=== PATIENT | female | born 1935 | race Caucasian/White ===

== ENCOUNTER 2018-08-06 11:44 | Inpatient (IN) | payer OTHER ==
[~2018-08-06] VITALS: Ht 154.9 cm; Wt 58.1 kg
[2018-08-06 11:44] VITALS: BP_SYST 146
[~2018-08-06 11:44] MED LIST: CITA10TA17 PO
[2018-08-06] MEDS ORDERED: NACL 0.9% 1,000 ML IV ONE (12:15)
[2018-08-06 12:26] LABS: BASOPHILS % (AUTO) 0.5 % (0.0-2.0); EOSINOPHILS # (AUTO) 0.2 K/uL (0.0-0.4); EOSINOPHILS % (AUTO) 1.9 % (0.0-4.0); HEMATOCRIT 37.9 % (36-48); HEMOGLOBIN 12.7 g/dL (12.0-16.0); LYMPHOCYTES # (AUTO) 1.3 K/uL (1.0-5.5); LYMPHOCYTES % (AUTO) 13.7 % (20.5-51.5); MEAN CORPUSCULAR HEMOGLOBIN 28 pg (27-31); MEAN CORPUSCULAR HGB CONC 33 % (32-36); MEAN CORPUSCULAR VOLUME 83 fL (79.0-98.0); MONOCYTES # (AUTO) 0.8 K/uL (0.0-1.0); NEUTROPHILS # (AUTO) 7.5 K/uL (1.8-7.7); NEUTROPHILS % (AUTO) 75.9 % (40.0-70.0); PLATELET COUNT (AUTO) 254 K/uL (130-430); RED BLOOD CELL COUNT(AUTO) 4.57 MIL/uL (4.2-6.2); RED CELL DISTRIBUTION WIDTH 12.7 % (9.0-15.0); WHITE BLOOD COUNT (AUTO) 9.8 K/uL (4.8-10.8)
[2018-08-06 12:38] LABS: ANION GAP 8 (5-15); CALCIUM 9.5 mg/dL (8.4-11.0); CHLORIDE 100 mmol/L (98-107); CREATININE 0.72 mg/dL (0.55-1.30); GLUCOSE 92 mg/dL (70-99); POTASSIUM 4.4 mmol/L (3.5-5.1); SODIUM SERUM 134 mmol/L (136-145); UREA NITROGEN, BLOOD 12 mg/dL (8-21)
[2018-08-06 12:41] LABS: BILIRUBIN,URINE NEGATIVE (NEGATIVE); BLOOD, URINE NEGATIVE (NEGATIVE); CLARITY/URINE CLEAR (CLEAR); COLOR,URINE YELLOW (YELLOW); GLUCOSE,URINE NEGATIVE (NEGATIVE); KETONES,URINE NEGATIVE (NEGATIVE); LEUKOCYTE ESTERASE ,URINE NEGATIVE (NEGATIVE); NITRITE, URINE NEGATIVE (NEGATIVE); PH,URINE 6.5 (5.0-8.0); PROTEIN URINE NEGATIVE (NEGATIVE); UROBILINOGEN,URINE 0.2 (0.2-1.0)
[2018-08-06 12:43] LABS: ALANINE AMINOTRANSFERASE 21 U/L (12-78); ALBUMIN 3.7 g/dL (3.4-4.8); ASPARTATE AMINOTRANSFERASE 23 U/L (10-37); TOTAL BILIRUBIN 0.3 mg/dL (0.0-1.0)
[2018-08-06 12:44] LABS: PROTHROMBIN TIME 9.8 SECS (9.5-12.5)
[2018-08-06] MEDS ORDERED: ASPIRIN 81 MG TAB.CHEW PO ONE (13:15)
[2018-08-06] MEDS ORDERED: ONDANSETRON HCL 4 MG/2 ML VIAL IVP PRN (14:15)
[2018-08-06] MEDS ORDERED: ACETAMINOPHEN 325 MG TABLET PO PRN (14:15)
[2018-08-06] MEDS ORDERED: MORPHINE 4 MG/ML INJ. SYRINGE IVP PRN (14:15)
[2018-08-06] MEDS ORDERED: CARB-61 PO (15:04)
[2018-08-06] MEDS ORDERED: POTA10TA15 PO (15:04)
[2018-08-06 15:33] VITALS: BP_SYST 153
[2018-08-06] MEDS: SIMVASTATIN 10 MG TABLET PO SCH (17:42)
[2018-08-06 19:50] VITALS: BP_SYST 131
[2018-08-06] MEDS: FAMOTIDINE 20 MG TABLET PO SCH (20:12)
[2018-08-06] MEDS: METOPROLOL TARTRATE 25 MG TABLET PO SCH (20:12)
[2018-08-06 20:17] VITALS: BP_SYST 131
[2018-08-06] MEDS: ZOLPIDEM TARTRATE 5 MG TABLET PO PRN (22:39)
[2018-08-07 00:05] VITALS: BP_SYST 129
[2018-08-07 07:52] LABS: ANION GAP 8 (5-15); CALCIUM 8.7 mg/dL (8.4-11.0); CHLORIDE 100 mmol/L (98-107); CREATININE 0.73 mg/dL (0.55-1.30); GLUCOSE 86 mg/dL (70-99); POTASSIUM 4.1 mmol/L (3.5-5.1); SODIUM SERUM 136 mmol/L (136-145); UREA NITROGEN, BLOOD 14 mg/dL (8-21)
[2018-08-07 07:53] LABS: ALANINE AMINOTRANSFERASE 34 U/L (12-78); ALBUMIN 3.4 g/dL (3.4-4.8); ASPARTATE AMINOTRANSFERASE 25 U/L (10-37); TOTAL BILIRUBIN 0.6 mg/dL (0.0-1.0)
[2018-08-07 08:17] VITALS: BP_SYST 148
[2018-08-07] MEDS: ASPIRIN 325 MG TABLET PO SCH (08:18)
[2018-08-07] MEDS: FAMOTIDINE 20 MG TABLET PO SCH ×2 (08:20→20:21)
[2018-08-07] MEDS: METOPROLOL TARTRATE 25 MG TABLET PO SCH ×2 (08:20→20:21)
[2018-08-07] MEDS: NITROGLYCERIN 0.2 MG/HR PATCH.TD24 TD SCH (08:21)
[2018-08-07] MEDS: ENOXAPARIN SODIUM 40 MG/0.4 ML SYRINGE SUBCUT SCH (08:23)
[2018-08-07 08:36] LABS: CHOLESTEROL 191 mg/dL (<200); HDL CHOLESTEROL 58 mg/dL (>55); LDL CHOLESTEROL 122 mg/dL (<100); TRIGLYCERIDES 71 mg/dL (30-150)
[2018-08-07] MEDS: CARBIDOPA/LEVODOPA 25/100 MG TABLET PO SCH ×2 (08:37→20:22)
[2018-08-07] MEDS: POTASSIUM CHLORIDE 10 MEQ TAB.PRT.SR PO SCH (08:38)
[2018-08-07] MEDS: CITALOPRAM HYDROBROMIDE 20 MG TABLET PO SCH (08:40)
[2018-08-07] MEDS ORDERED: CITALOPRAM HYDROBROMIDE 20 MG TABLET PO SCH (09:00)
[2018-08-07 12:45] VITALS: BP_SYST 130
[2018-08-07 16:43] VITALS: BP_SYST 119
[2018-08-07] MEDS: SIMVASTATIN 10 MG TABLET PO SCH (17:51)
[2018-08-07 19:50] VITALS: BP_SYST 143
[2018-08-07] MEDS: ZOLPIDEM TARTRATE 5 MG TABLET PO PRN (20:22)
[2018-08-08 01:22] VITALS: BP_SYST 134
[2018-08-08 08:00] VITALS: BP_SYST 145
[2018-08-08] MEDS: ASPIRIN 325 MG TABLET PO SCH (09:34)
[2018-08-08] MEDS: CARBIDOPA/LEVODOPA 25/100 MG TABLET PO SCH (09:35)
[2018-08-08] MEDS: FAMOTIDINE 20 MG TABLET PO SCH (09:35)
[2018-08-08] MEDS: CITALOPRAM HYDROBROMIDE 20 MG TABLET PO SCH (09:35)
[2018-08-08] MEDS: NITROGLYCERIN 0.2 MG/HR PATCH.TD24 TD SCH (09:35)
[2018-08-08] MEDS: POTASSIUM CHLORIDE 10 MEQ TAB.PRT.SR PO SCH (09:36)
[2018-08-08] MEDS: METOPROLOL TARTRATE 25 MG TABLET PO SCH (09:36)
[2018-08-08] MEDS: ENOXAPARIN SODIUM 40 MG/0.4 ML SYRINGE SUBCUT SCH (09:39)
[2018-08-08 12:17] VITALS: BP_SYST 131
[2018-08-08 14:14] VITALS: BP_SYST 132
== END 2018-08-08 14:42 | disposition home or self-care (01) | DRG 280 ==
LOC: SED 11:44 → STU 14:29
PROVIDERS: ADMIT Internal Medicine; ATTEND Internal Medicine
DX: I21.A1 Myocardial infarction type 2 (principal); G93.41 Metabolic encephalopathy; I49.9 Cardiac arrhythmia, unspecified; F32.9 Major depressive disorder, single episode, unspecified; G20 Parkinson's disease; G51.0 Bell's palsy; I10 Essential (primary) hypertension; Z88.2 Allergy status to sulfonamides; Z79.899 Other long term (current) drug therapy; Z90.49 Acquired absence of other specified parts of digestive tract; Z90.710 Acquired absence of both cervix and uterus; Z96.653 Presence of artificial knee joint, bilateral; R55 Syncope and collapse
CPT/HCPCS: 36415; 70551; 71045; 80053; 80061; 81003; 82550-TC; 83605; 84484; 85025; 85610-TC; 85730-TC; 87040-TC; 87086; 93005; 93306; 93880; 95816; 96360; 96361; 99285; G0378; J1650

== ENCOUNTER 2018-08-09 06:34 | Emergency (ER) | payer OTHER ==
[~2018-08-09] VITALS: Ht 154.9 cm; Wt 58.1 kg
[~2018-08-09 06:34] MED LIST changes: +CARB-61 PO; +POTA10TA15 PO
[2018-08-09 06:39] VITALS: BP_SYST 163
[2018-08-09] MEDS ORDERED: PANTOPRAZOLE SODIUM 40 MG TAB PO ONE (07:30)
[2018-08-09] MEDS ORDERED: IBUPROFEN 800 MG TABLET PO ONE (07:30)
[2018-08-09 07:55] VITALS: BP_SYST 163
== END 2018-08-09 07:55 | disposition home or self-care (01) ==
LOC: SED 06:34
DX: S93.402A Sprain of unspecified ligament of left ankle, initial encounter (principal); S80.02XA Contusion of left knee, initial encounter; Z79.899 Other long term (current) drug therapy; Z88.2 Allergy status to sulfonamides; W10.9XXA Fall (on) (from) unspecified stairs and steps, initial encounter; Y93.89 Activity, other specified; Y92.89 Other specified places as the place of occurrence of the external cause; Y99.8 Other external cause status
CPT/HCPCS: 73564; 99283

== ENCOUNTER 2019-03-23 20:57 | Emergency (ER) | payer OTHER ==
[~2019-03-23] VITALS: Ht 152.4 cm; Wt 58.1 kg
[2019-03-23 21:21] VITALS: BP_SYST 119
--- NOTE | 2019-03-23 21:24 | NUR ---
Patient triaged and placed in waiting room. VSS and patient appears in no acute distress at this time. Accompanied by self, awaiting available bed, and MD notified of need for MSE.
--- NOTE | 2019-03-23 22:30 | NUR ---
Patient called from waiting room. No answer. Not found in ER waiting room bathroom nor outside in front of ER entrance. Per admitting, pt had informed them that she is leaving. Pt assumed to have left without being seen.
== END 2019-03-23 22:30 | disposition left against medical advice (07) ==
LOC: SED 20:57
DX: H57.89 Other specified disorders of eye and adnexa (principal); Z53.21 Procedure and treatment not carried out due to patient leaving prior to being seen by health care provider; W07.XXXA Fall from chair, initial encounter; Y93.89 Activity, other specified; Y92.89 Other specified places as the place of occurrence of the external cause; Y99.8 Other external cause status

== ENCOUNTER 2019-03-29 09:18 | Emergency (ER) | payer OTHER ==
[~2019-03-29] VITALS: Ht 162.6 cm; Wt 56.7 kg
[2019-03-29 09:18] VITALS: BP_SYST 159
--- NOTE | 2019-03-29 09:18 | NUR ---
BROUGHT BACK TO BED #4 AND TRIAGED. REPORT GIVEN TO LISA
--- NOTE | 2019-03-29 09:35 | NUR ---
Patient presented to ER with c/o leg pain. Patient A&Ox4, afebrile, pain 6/10, denies nausea, denies, vomiting. Patient has a bruise to right eye from previous fall. Patient c/o right leg pain from right hip to right ankle intermittent since December. But today pain has increased. Patient staes she has taken OTC Advil for pain.
[2019-03-29] MEDS ORDERED: KETOROLAC TROMETHAMINE 60 MG/2 ML VIAL IM ONE (09:45)
[2019-03-29] MEDS ORDERED: KETOROLAC TROMETHAMINE 30 MG VIAL IM ONE (09:45)
--- NOTE | 2019-03-29 09:45 | NUR ---
ER Dr. Aguilera at bedside examining patient.
--- NOTE | 2019-03-29 09:50 | NUR ---
Patient to radiology via wheelchair
[2019-03-29 10:29] LABS: BASOPHILS # (AUTO) 0.1 K/uL (0.0-0.2); BASOPHILS % (AUTO) 1.2 % (0.0-2.0); EOSINOPHILS # (AUTO) 0.2 K/uL (0.0-0.4); HEMOGLOBIN 12.1 g/dL (12.0-16.0); LYMPHOCYTES # (AUTO) 1.3 K/uL (1.0-5.5); LYMPHOCYTES % (AUTO) 24.6 % (20.5-51.5); MEAN CORPUSCULAR HEMOGLOBIN 28 pg (27-31); MEAN CORPUSCULAR HGB CONC 33 % (32-36); MEAN CORPUSCULAR VOLUME 85 fL (79.0-98.0); MONOCYTES # (AUTO) 0.5 K/uL (0.0-1.0); MONOCYTES % (AUTO) 9.3 % (1.7-9.3); NEUTROPHILS # (AUTO) 3.2 K/uL (1.8-7.7); NEUTROPHILS % (AUTO) 61.9 % (40.0-70.0); PLATELET COUNT (AUTO) 184 K/uL (130-430); RED BLOOD CELL COUNT(AUTO) 4.37 MIL/uL (4.2-6.2); WHITE BLOOD COUNT (AUTO) 5.1 K/uL (4.8-10.8)
[2019-03-29 10:33] LABS: ANION GAP 3 (5-15); CALCIUM 8.9 mg/dL (8.4-11.0); CHLORIDE 103 mmol/L (98-107); CREATININE 0.75 mg/dL (0.55-1.30); GLUCOSE 95 mg/dL (70-99); POTASSIUM 4.1 mmol/L (3.5-5.1); SODIUM SERUM 135 mmol/L (136-145); UREA NITROGEN, BLOOD 17 mg/dL (8-21)
[2019-03-29 10:37] LABS: INR 0.9 (0.8-1.2); PROTHROMBIN TIME 9.7 SECS (9.5-12.5)
[2019-03-29 10:38] LABS: ALANINE AMINOTRANSFERASE 29 U/L (12-78); ALBUMIN 3.7 g/dL (3.4-4.8); ASPARTATE AMINOTRANSFERASE 19 U/L (10-37); TOTAL BILIRUBIN 0.4 mg/dL (0.0-1.0); URIC ACID 4.3 mg/dL (2.4-7.0)
[2019-03-29 10:39] LABS: C-REACTIVE PROTEIN QUANT < 0.2 mg/dL (0-0.5)
[2019-03-29 12:19] VITALS: BP_SYST 150
--- NOTE | 2019-03-29 12:19 | NUR ---
Patient given written and verbal discharge instructions and verbalizes understanding. ER MD discussed with patient the results and treatment provided. Patient in stable condition. ID arm band removed. Rx of MOTRIN,NORCO given. Patient educated on pain management and to follow up with PMD. Pain Scale 0/10. Opportunity for questions provided and answered. Medication side effect fact sheet provided.
== END 2019-03-29 12:19 | disposition home or self-care (01) ==
LOC: SED 09:18
DX: M79.605 Pain in left leg (principal); G20 Parkinson's disease; Z88.2 Allergy status to sulfonamides; Z79.899 Other long term (current) drug therapy
CPT/HCPCS: 36415; 72170; 73560; 80053; 84550; 85025; 85610; 85730; 86140; 93971; 96372; 99284; J1885